=== PATIENT | female | born 1955 | race African-American/Black ===

== ENCOUNTER 2020-10-10 11:51 | Emergency (ER) | payer MEDICARE ==
[~2020-10-10] VITALS: Ht 172.7 cm; Wt 95.0 kg
[~2020-10-10 11:51] MED LIST: AMOXICILLIN500 MG PO; BENZONATATE200 MG PO; CELEBREX100 MG OR; FLONASE NASAL50 MCG; GLIME4T PO; GLUMETZA500 MG OR; JANUVIA100 MG PO; LANTUS IJ; LISINOPRIL10 MG PO; LISINOPRIL5 MG PO; VAGIFEM10 MCG VA; ZITHROMAX TRI-P1 TAB PO; [UNRECOGNIZED DRUG - SUPPLY]
[2020-10-10] MEDS ORDERED: CYCLOBENZAPRINE10 MG PO (13:43)
[2020-10-10] MEDS ORDERED: NAPROXEN500 MG PO (13:43)
[2020-10-10 14:40] VITALS: BP 146/73
== END 2020-10-10 14:40 | disposition home or self-care (01) ==
LOC: ED 11:51
DX: M17.11 Unilateral primary osteoarthritis, right knee (principal); M76.9 Unspecified enthesopathy, lower limb, excluding foot; I10 Essential (primary) hypertension

== ENCOUNTER 2021-06-23 08:24 | Day surgery (SDC) | payer MEDICARE ==
[~2021-06-23] VITALS: Ht 172.7 cm; Wt 95.3 kg
[~2021-06-23 08:24] MED LIST changes: +CYCLOBENZAPRINE10 MG PO; +FARXIGA10 MG; +LANTUS100 UNIT SC; +LIPITOR20 M1 PO; +NAPROXEN500 MG PO; +VALSARTAN160 MG
[2021-06-23 13:12] VITALS: BP 151/93
== END 2021-06-23 13:04 | disposition home or self-care (01) ==
LOC: ENDO 08:24
PROVIDERS: ATTEND Surgery
PROC: 0DBH8ZX Excision of Cecum, Via Natural or Artificial Opening Endoscopic, Diagnostic (ICD-10-PCS; principal; 2021-06-23)
PROC: 0DBB8ZX Excision of Ileum, Via Natural or Artificial Opening Endoscopic, Diagnostic (ICD-10-PCS; 2021-06-23)
DX: Z12.11 Encounter for screening for malignant neoplasm of colon (principal); K63.89 Other specified diseases of intestine; K64.8 Other hemorrhoids; I10 Essential (primary) hypertension; E11.9 Type 2 diabetes mellitus without complications; E78.5 Hyperlipidemia, unspecified; Z79.4 Long term (current) use of insulin; Z86.010 Personal history of colon polyps; Z90.49 Acquired absence of other specified parts of digestive tract

== ENCOUNTER 2022-10-03 10:01 | Emergency (ER) | payer MEDICARE ==
[2022-10-03] VITALS (7 sets, daily range): BP systolic 137–161; BP diastolic 77–91
[~2022-10-03] VITALS: Ht 172.7 cm; Wt 78.2 kg
== END 2022-10-03 13:34 | disposition home or self-care (01) ==
LOC: ED 10:01
DX: J02.9 Acute pharyngitis, unspecified (principal); I10 Essential (primary) hypertension; E11.9 Type 2 diabetes mellitus without complications; E78.5 Hyperlipidemia, unspecified; Z79.4 Long term (current) use of insulin; Z20.822 Contact with and (suspected) exposure to COVID-19